=== PATIENT | female | born 1940 | race Caucasian/White ===

== ENCOUNTER 2017-08-06 19:30 | Inpatient (IN) | payer MEDICARE, OTHER ==
[2017-08-06] VITALS: BP 131/65; RESP 18
[~2017-08-06] VITALS: Ht 162.6 cm; Wt 76.2 kg
[~2017-08-06 19:30] MED LIST: CHOL100062 PO; FLUO20CA22 PO; FOLI-49 PO; HYDR-3672 PO; INSU100C5 SQ; LATA2.5D9 OP; LISI40TA9 PO; METF500T3 PO; METO-319 PO; PRAV40TA76 PO; SITA100T8 PO; SOLI5TAB5 PO
[2017-08-06] MEDS ORDERED: NITROGLYCERIN 2% 1 GM OINT PKT TD STA (19:35)
[2017-08-06] MEDS ORDERED: ONDANSETRON 4 MG INJ IV STA (19:35)
[2017-08-06 19:47] LABS: BASOPHILS % 0.3 % (0.0-2.0); EOSINOPHILS # 0.1 10^3/ul (0.0-0.5); EOSINOPHILS % 1.1 % (0.0-7.0); HEMATOCRIT 26.8 % (37.0-47.0); LYMPHOCYTES # 1.4 10^3/ul (0.8-2.9); LYMPHOCYTES % 11.6 % (15.0-51.0); MEAN CORPUSCULAR HEMOGLOBIN 29.9 pg (29.0-33.0); MEAN CORPUSCULAR HGB CONC 33.6 g/dl (32.0-37.0); MEAN PLATELET VOLUME 9.8 fl (7.4-10.4); MONOCYTE # 1.1 10^3/ul (0.3-0.9); MONOCYTES % 8.9 % (0.0-11.0); NEUTROPHIL # 9.6 10^3/ul (1.6-7.5); NEUTROPHILS % 77.7 % (39.0-77.0); PLATELET COUNT 317 10^3/UL (140-415); RED BLOOD COUNT 3.01 10^6/ul (4.20-5.40); RED CELL DISTRIBUTION WIDTH 14.6 % (11.5-14.5); WHITE BLOOD COUNT 12.4 10^3/ul (4.8-10.8)
[2017-08-06] MEDS ORDERED: NITROGLYCERIN (SL) 0.4 MG TAB SL PRN ×2 (20:00→22:00)
[2017-08-06 20:04] LABS: ANION GAP 15 (8-16); BLOOD UREA NITROGEN 31 mg/dl (7-20); CALCIUM 8.8 mg/dl (8.4-10.2); CARBON DIOXIDE 21 mmol/L (21-31); CHLORIDE 97 mmol/L (97-110); CREATININE 1.68 mg/dl (0.44-1.00); GLUCOSE 360 mg/dl (70-220); POTASSIUM 4.9 mmol/L (3.5-5.1); SODIUM 128 mmol/L (135-144)
[2017-08-06 20:17] LABS: TROPONIN-I < 0.012 ng/ml (0.00-0.12)
[2017-08-06] MEDS ORDERED: ACETAMINOPHEN 325 MG TAB PO PRN (21:00)
[2017-08-06] MEDS ORDERED: ONDANSETRON 4 MG INJ IV PRN (21:00)
--- NOTE | 2017-08-06 21:44 | ERA ---
ER Documentation Chief Complaint Date/Time DATE: 08/06/17 TIME: 21:41 Chief Complaint BIBA RA39,CP radiating to L arm,rec'd aspirin & nitro HPI Patient is a 76-year-old female with hypertension and diabetes who presents with chest pain. The patient has chest pain for the past 2 days. The chest pain radiates down her left arm. She denies shortness of breath. She was given aspirin nitroglycerin by paramedics. She says that her pain improved from a 9 to a 7. She had radiation into the neck. The symptoms come and go and lasts minutes at a time. Her primary doctor is Dr. Miranda. ROS All systems reviewed and are negative except as per history of present illness. Medications Home Meds Reported Medications Cholecalciferol* (Vitamin D3*) 1,000 Unit Tablet, 1000 UNIT PO DAILY, TAB 01/09/15 Hydralazine Hcl* (Hydralazine Hcl*) 50 Mg Tablet, 50 MG PO BID, TAB 01/09/15 Metoprolol Succinate* (Toprol XL*) 50 Mg Tab.er.24h, 50 MG PO BID, TAB 01/09/15 Metformin Hcl* (Metformin Hcl* ER) 500 Mg Tab.sr.24h, 500 MG PO BID, TAB 01/09/15 Insulin Glargine,Hum.rec.anlog (Lantus) 100 U/Ml Cartridge, 28 SQ DAILY 09/06/13 Latanoprost (Xalatan) 2.5 Ml Drops, 1 DRP OP HS 08/27/13 Solifenacin* (Vesicare*) 5 Mg Tablet, 5 MG PO DAILY 08/27/13 Pravastatin Sodium* (Pravastatin Sodium*) 40 Mg Tablet, 40 MG PO HS 08/27/13 Fluoxetine Hcl* (Fluoxetine Hcl*) 20 Mg Capsule, 20 MG PO BID, 0 Refills 01/29/11 Lisinopril* (Lisinopril*) 40 Mg Tablet, 40 MG PO BID 01/29/11 Folic Acid* (Folic Acid*) 1 Mg Tablet, 1 MG PO DAILY, 0 Refills 01/29/11 Sitagliptin* (Januvia*) 100 Mg Tablet, 100 MG PO DAILY, 0 Refills 01/29/11 Allergies Allergies: Coded Allergies: Penicillins (Verified Allergy, Mild, RASH,TONGUE SWOLLEN, 09/05/13) morphine (Verified Allergy, Mild, HALUCINATION, 09/05/13) PMhx/Soc History of Surgery: Yes (bilateral knee replacements, spine fusion) Anesthesia Reaction: No Hx Neurological Disorder: No Hx Respiratory Disorders: No Hx Cardiac Disorders: Yes (HTN) Hx Psychiatric Problems: Yes (DEPRESSION) Hx Miscellaneous Medical Probl: No Hx Alcohol Use: No Hx Substance Use: No Hx Tobacco Use: No FmHx Family History: coronary disease Physical Exam Vitals Vital Signs Date Time Temp Pulse Resp B/P Pulse Ox O2 Delivery O2 Flow Rate FiO2 08/06/17 20:22 99.1 78 17 107/95 98 Room Air 08/06/17 19:33 100.4 82 18 134/60 96 Physical Exam Const: No acute distress Head: Atraumatic Eyes: Normal Conjunctiva ENT: Normal External Ears, Nose and Mouth. Neck: Full range of motion..~ No meningismus. Resp: Clear to auscultation bilaterally Cardio: Regular rate and rhythm, no murmurs Abd: Soft, non tender, non distended. Normal bowel sounds Skin: No petechiae or rashes Back: No midline or flank tenderness Ext: No cyanosis, or edema Neur: Awake and alert Psych: Normal Mood and Affect Result Diagram: 08/06/17194008/06/171940 Results 24 hrs Laboratory Tests Test 08/06/17 19:41 White Blood Count 12.410^3/ul Red Blood Count 3.0110^6/ul Hemoglobin 9.0g/dl Hematocrit 26.8% Mean Corpuscular Volume 89.0fl Mean Corpuscular Hemoglobin 29.9pg Mean Corpuscular Hemoglobin Concent 33.6g/dl Red Cell Distribution Width 14.6% Platelet Count 18230^3/UL Mean Platelet Volume 9.8fl Neutrophils % 77.7% Lymphocytes % 11.6% Monocytes % 8.9% Eosinophils % 1.1% Basophils % 0.3% Nucleated Red Blood Cells % 0.0/100WBC Neutrophils # 9.610^3/ul Lymphocytes # 1.410^3/ul Monocytes # 1.110^3/ul Eosinophils # 0.110^3/ul Basophils # 0.010^3/ul Nucleated Red Blood Cells # 0.010^3/ul Sodium Level 128mmol/L Potassium Level 4.9mmol/L Chloride Level 97mmol/L Carbon Dioxide Level 21mmol/L Anion Gap 15 Blood Urea Nitrogen 31mg/dl Creatinine 1.68mg/dl Glucose Level 360mg/dl Calcium Level 8.8mg/dl Troponin I < 0.012ng/ml Current Medications Medications (Trade) Dose Ordered Sig/Kiera Route PRN Reason Start Time Stop Time Status Last Admin Dose Admin Nitroglycerin (Nitroglycerin 2% Oint) 1 inch ONCE STAT TD 08/06/17 19:35 08/06/17 19:36 DC 08/06/17 20:02 Nitroglycerin (Nitroglycerin (Sl Tab) 0.4 Mg) 1 tab Q5M UP TO 3 DOSES PRN SL CHEST PAIN 08/06/17 20:00 Ondansetron HCl (Zofran Inj) 4 mg ONCE STAT IV 08/06/17 19:35 08/06/17 19:36 DC 08/06/17 20:03 Ondansetron HCl (Zofran Inj) 4 mg ER BRIDGE PRN IV NAUSEA AND/OR VOMITING 08/06/17 21:00 08/07/17 20:59 Acetaminophen (Tylenol Tab) 650 mg ER BRIDGE PRN PO MILD PAIN/FEVER 08/06/17 21:00 08/07/17 20:59 Procedures/MDM EKG read by me: Rate/Rhythm: Regular rate and rhythm at a normal rate Intervals: Normal Impression: No evidence of ischemia or arrhythmia Chest X-ray 1V Interpreted by me: Soft Tissue: No acute abnormalities Bones: No acute abnormalities Mediastinum/Cardiac Silhouette/Lungs: No acute abnormalities Patient is a 76-year-old female with cardiac risk factors who presents with chest pain. I was concerned for possible acute coronary syndrome. At this point I see no signs of pneumonia, pneumothorax, pulmonary embolism, or aortic dissection. The patient was given aspirin nitroglycerin and I spoke with Dr. Miranda for admission to a telemetry bed. I believe a telemetry observation admission is appropriate at this time. The patient initially had a temperature of 100.4 but without treatment this temperature on repeat check was 99 and I doubt true infection at this time. However I did send a urinalysis and urine culture as there was a history from the family of previous urine infection. At this point I doubt sepsis or serious bacterial infection. The patient has anemia but does not require transfusion at this time. The patient has hyperglycemia but no signs of diabetic ketoacidosis. The patient has seen Dr. Galarza in the past and I called Dr. Galarza in consultation and I am awaiting a callback at this time. Departure Diagnosis: Primary Impression: Chest pain Qualified Code: R07.9 - Chest pain, unspecified type Additional Impressions: Anemia Qualified Code: D64.9 - Anemia, unspecified type Hyperglycemia CK LEAL MD Aug 06, 2017 21:44
--- NOTE | 2017-08-06 21:45 | RADRPT ---
PROCEDURE: XR Chest. CLINICAL INDICATION: Chest pain TECHNIQUE: Single portable view of the chest was obtained COMPARISON: October 14, 2014 FINDINGS: The trachea is midline. The cardiac silhouette is enlarged and pulmonary vascularity are within norm al limits. The lungs are clear. The costophrenic angles are sharp. IMPRESSION: 1. Cardiomegaly. No evidence of acute cardiopulmonary disease. RPTAT: AAPP Physician Steve Date Time Electronically viewed and signed by Mark Noriega Physician on 08/06/2017 21:45 JL/
[2017-08-06 21:47] VITALS: TEMP 98.8
[2017-08-06 21:59] VITALS: PULSE 75
[2017-08-06] MEDS ORDERED: LORAZEPAM 0.5 MG TAB PO PRN (22:00)
[2017-08-06] MEDS ORDERED: DOCUSATE SODIUM 100 MG CAP PO PRN (22:00)
[2017-08-06] MEDS ORDERED: NACL 0.9% 3 ML SYG IV SCH (22:00)
[2017-08-06] MEDS ORDERED: HYDROCODONE/APAP (5/325) TAB PO PRN (22:00)
[2017-08-06] MEDS ORDERED: GLUCOSE GEL 15 GRAM TUBE BUCCAL PRN (22:30)
[2017-08-06] MEDS ORDERED: DEXTROSE 50% 50 ML SYRINGE IV PRN ×2 (22:30)
[2017-08-06] MEDS ORDERED: GLUCAGON 1 MG INJ IM PRN (22:30)
[2017-08-06] MEDS ORDERED: GLUCOSE GEL 15 GRAM TUBE PO PRN ×2 (22:30)
[2017-08-06] MEDS ORDERED: LACTATED RINGER'S 1,000 ML IV ONE (23:00)
[2017-08-06] MEDS: HEPARIN 5,000 UNIT/0.5 ML VIAL SC SCH (23:14)
[2017-08-06 23:36] LABS: CK-MB 0.26 ng/ml (0.0-2.4); TROPONIN-I 0.014 ng/ml (0.00-0.12)
[2017-08-06] MEDS: CALCIUM CARBONATE 500 MG CHEW TAB PO SCH (23:47)
[2017-08-06 23:51] VITALS: Ht 162.6 cm; Wt 76.2 kg
[2017-08-07] VITALS (10 sets, daily range): BP systolic 118–146; BP diastolic 56–67; PULSE 69–87; RESP 15–18
[2017-08-07] MEDS ORDERED: SOLI5TAB5 PO (01:48)
[2017-08-07] MEDS: ACCU-CHEK XX SCH (02:45)
[2017-08-07] MEDS ORDERED: INSULIN GLARGINE [LANtus] 3 ML PEN SC SCH (08:00)
[2017-08-07] MEDS ORDERED: metFORMIN (XR) 500 MG TAB PO SCH (08:00)
[2017-08-07] MEDS: INSULIN ASPART [NOVOLOG] 3 ML PEN SC SCH ×6 (08:54→21:00)
[2017-08-07] MEDS: FLUOXETINE 20 MG CAP PO SCH ×2 (08:57→21:13)
[2017-08-07] MEDS: CHOLECALCIFEROL 1,000 UNIT TAB PO SCH (08:57)
[2017-08-07] MEDS: LISINOPRIL 20 MG TAB PO SCH ×2 (08:57→21:13)
[2017-08-07] MEDS: SOLIFENACIN 5 MG TAB PO SCH (08:57)
[2017-08-07] MEDS: FAMOTIDINE 20 MG TAB PO SCH (08:58)
[2017-08-07] MEDS: LINAGLIPTIN 5 MG TABLET PO SCH (08:58)
[2017-08-07] MEDS: FOLIC ACID 1 MG TAB PO SCH (08:58)
[2017-08-07] MEDS: METOPROLOL (XL) 50 MG TAB PO SCH ×2 (08:58→21:13)
[2017-08-07] MEDS: CALCIUM CARBONATE 500 MG CHEW TAB PO SCH ×4 (08:58→21:13)
[2017-08-07] MEDS: HEPARIN 5,000 UNIT/0.5 ML VIAL SC SCH ×2 (08:59→21:16)
[2017-08-07 09:22] LABS: BASOPHILS % 0.4 % (0.0-2.0); EOSINOPHILS # 0.1 10^3/ul (0.0-0.5); EOSINOPHILS % 1.5 % (0.0-7.0); HEMATOCRIT 25.4 % (37.0-47.0); HEMOGLOBIN 8.1 g/dl (12.0-16.0); LYMPHOCYTES # 1.6 10^3/ul (0.8-2.9); LYMPHOCYTES % 21.7 % (15.0-51.0); MEAN CORPUSCULAR HEMOGLOBIN 28.4 pg (29.0-33.0); MEAN CORPUSCULAR HGB CONC 31.9 g/dl (32.0-37.0); MEAN CORPUSCULAR VOLUME 89.1 fl (82.0-101.0); MEAN PLATELET VOLUME 10.1 fl (7.4-10.4); MONOCYTE # 0.4 10^3/ul (0.3-0.9); MONOCYTES % 4.9 % (0.0-11.0); NEUTROPHIL # 5.4 10^3/ul (1.6-7.5); NEUTROPHILS % 71.1 % (39.0-77.0); PLATELET COUNT 290 10^3/UL (140-415); RED BLOOD COUNT 2.85 10^6/ul (4.20-5.40); RED CELL DISTRIBUTION WIDTH 14.5 % (11.5-14.5); WHITE BLOOD COUNT 7.6 10^3/ul (4.8-10.8)
[2017-08-07 09:46] LABS: IRON 15 ug/dl (35-150)
[2017-08-07 09:48] LABS: CREATINE KINASE 29 IU/L (23-200)
[2017-08-07 09:54] LABS: ALBUMIN 3.1 g/dl (3.3-4.9); ALBUMIN/GLOBULIN RATIO 0.93; BILIRUBIN,INDIRECT 0.3 mg/dl (0-1.1); BILIRUBIN,TOTAL 0.3 mg/dl (0.2-1.3); CALCIUM 8.5 mg/dl (8.4-10.2); CREATININE 1.51 mg/dl (0.44-1.00); POTASSIUM 4.4 mmol/L (3.5-5.1); TOTAL PROTEIN 6.4 g/dl (6.1-8.1)
[2017-08-07 09:57] LABS: TOTAL IRON BINDING CAPACITY 271 ug/dl (241-421)
[2017-08-07 10:00] LABS: CK-MB 0.24 ng/ml (0.0-2.4)
[2017-08-07 10:01] LABS: TROPONIN-I < 0.012 ng/ml (0.00-0.12)
[2017-08-07 10:28] LABS: FERRITIN 61.4 ng/ml (11.1-264.0)
[2017-08-07] MEDS ORDERED: VANCOMYCIN IV PER PHARMACY XX SCH (10:30)
[2017-08-07] MEDS: HYDROCODONE/APAP (5/325) TAB PO PRN ×2 (10:32→16:57)
[2017-08-07] MEDS ORDERED: VANCOMYCIN 1.5 GM in SOD CHLORIDE 0.9% 250 ML IVPB ONE (12:00)
[2017-08-07] MEDS: SOD FERRIC GLUC COMPLX 125 MG in SOD CHLORIDE 0.9% 100 ML IVPB SCH (12:27)
[2017-08-07] MEDS: NEOMYC/POLYMYX/HC 10 ML OTIC SUSP BOTH EARS SCH ×3 (12:27→21:12)
--- NOTE | 2017-08-07 14:00 | CONS ---
DATE OF ADMISSION: 08/06/2017 DATE OF CONSULTATION: 08/07/2017 TYPE OF CONSULTATION: Cardiology. REFERRING PHYSICIAN: Dr. Miranda REASON FOR CONSULTATION: Chest pain. CHIEF COMPLAINT: Chest pain. HISTORY OF PRESENT ILLNESS: Thank you for this referral. History obtained from the patient, isela rojas with her , review of the chart. This is a pleasant 76-year-old female with history of d iabetes, hypertension who came to emergency room with above complaint. Patient does complain of epi gastric and substernal chest pain. Could not describe the pain well. It lasted for hours. She cou ld not explain exacerbating factor to it. The patient's pain has resolved now. She has had negativ e cardiac enzymes. PAST MEDICAL HISTORY: History of diabetes, history of hypertension, history of dyslipidemia, histor y of anemia, history of , asthma, gastroesophageal reflux disease, history of vitamin D and vit velasquez B deficiency. Review of the old chart. History of osteoarthritis status post lumbar laminecto my, knee arthroplasty, right breast biopsy which was benign, left total knee replacement, status pos t muscle biopsy. MEDICATIONS: As per medication reconciliation, personally reviewed. ALLERGIES: MORPHINE AND PENICILLIN. SOCIAL HISTORY: Does not smoke or drink. FAMILY HISTORY: No reported early coronary artery disease. REVIEW OF SYSTEMS: Denies all other except for mentioned. Positive also back pain and leg pain. PHYSICAL EXAMINATION: VITAL SIGNS: Temperature 98, heart rate of 83, blood pressure 125/59, respiration rate of 18, satur ating 93%. HEENT: Normocephalic, atraumatic. No acute distress. Pupils are equal. NECK: Supple, with no JVD, no stridor. CARDIOVASCULAR: Regular rate and rhythm. Grade 1 systolic murmur. PULMONARY: With no wheezes or rhonchi. GASTROINTESTINAL: Soft, nontender. No rebound, no guarding. EXTREMITIES: No significant lower extremity edema. NEUROLOGIC: Awake and alert. PSYCHIATRIC: Calm, pleasant. LABORATORY: WBC of 7.6, hemoglobin 8.1, platelets 290. Sodium 132, potassium 4.4, BUN of 24, creat inine 1.55, glucose of 259. MCV is 89. EKG shows normal sinus rhythm with incomplete right bundle on my personal review. Troponins have been negative x3. Iron studies showed iron is only 15, creat inine is 1.51, glucose 252. ASSESSMENT AND PLAN: 1. Chest pain, rule out acute coronary syndrome. 2. Severe anemia. 3. Iron deficiency. 4. Diabetes. 5. Hypertension. 6. History of dyslipidemia, history of osteoarthritis and multiple back surgeries. RECOMMENDATIONS: Cardiac enzymes have been negative so far and myocardial infarction was ruled out. Patient currently chest pain-free. Blood pressure control will be continued with the current josias men. Diabetes management as per Dr. Miranda and/or associate. Echo has been ordered, is still pendin g. We will order a Lexiscan stress test to be supervised by Dr. Galarza tomorrow. Dr. Galarza will f ollow from a cardiac standpoint tomorrow. Thank you for this referral. Dictated By: TRISH GARCIA/PRECIOUS Conf#: [id number] DID#: [id number]
[2017-08-07 14:48] LABS: ADD UMIC YES; UR ASCORBIC ACID NEGATIVE (NEGATIVE); UR BILIRUBIN (Dip) NEGATIVE (NEGATIVE); UR BLOOD (Dip) NEGATIVE (NEGATIVE); UR CLARITY CLEAR (CLEAR); UR COLOR YELLOW (YELLOW); UR GLUCOSE (Dip) 1+ mg/dL (NEGATIVE); UR KETONES (Dip) NEGATIVE (NEGATIVE); UR LEUKOCYTE ESTERASE (Dip) TRACE Leu/ul (NEGATIVE); UR NITRITE (Dip) NEGATIVE (NEGATIVE); UR RBC 0 /HPF (0-5); UR SPECIFIC GRAVITY (Dip) 1.013 (1.003-1.030); UR SQUAMOUS EPITHELIAL CELL FEW /HPF (FEW); UR TOTAL PROTEIN (Dip) 1+ mg/dl (NEGATIVE); UR UROBILINOGEN (Dip) NEGATIVE (NEGATIVE)
[2017-08-07] MEDS ORDERED: LACTATED RINGER'S 500 ML IV ONE (16:00)
--- NOTE | 2017-08-07 16:18 | HP ---
Date/Time of Note Date/Time of Note DATE: 08/07/17 TIME: 15:54 Assessment/Plan VTE Prophylaxis VTE Prophylaxis Intervention: heparin Lines/Catheters IV [facility] Urinary Cath still in place: No Assessment/Plan Problems: (1) Diabetes mellitus type 2 in nonobese Status: Chronic Comment: Her control has been variable. Please note there been some issues of cooperation and compliance although generally this very pleasant woman does her best. I will adjust her regimen to try and get her under adequate control here in the hospital. Please note with the question being raised about the fevers and the possibility of recurrent spinal infection (2) Hyperlipidemia Status: Chronic Comment: Noted. Statin therapy. Qualifiers: Hyperlipidemia type: pure hypercholesterolemia Qualified Code: E78.00 - Pure hypercholesterolemia (3) Dermatomyositis Status: Chronic Comment: Noted. Previously under the care of rheumatology Dr. Dillan Heart (4) Sciatica Status: Chronic Comment: He has been through a number of protocols for evaluation of this including neurology neurosurgery second opinions etc. This continues to be a very vexing problem. She is actively a patient of the orthopedist Dr. Gayle Qualifiers: Laterality: right Qualified Code: M54.31 - Sciatica of right side (5) Lumbar disc disease Status: Chronic Comment: As above continues to be a source of problem. We will try and get some imaging in process. (6) History of lumbar laminectomy Status: Chronic Comment: Noted. Hopefully there is not a complication (7) Chest pain Status: Acute Comment: She has been seen in cardiology consultation. She does have cardiac risk factors my index of suspicion and fear r is low. Qualifiers: Chest pain type: unspecified Qualified Code: R07.9 - Chest pain, unspecified type (8) Hyperglycemia Status: Acute Comment: As above continue to adjust medication regimen (9) Anemia Status: Acute Comment: Checking iron studies and will replete as indicated. Qualifiers: Anemia type: unspecified type Qualified Code: D64.9 - Anemia, unspecified type HPI/ROS Admit Date/Time Admit Date/Time Aug 06, 2017 at 20:43 Hx of Present Illness 76-year-old [place] woman with a chief complaint of some failure to thrive. She has had a somewhat complicated medical history over the last 3 years which had correlated her around issues. She had a semi-urgent lumbar laminectomy with apparent infection as a complication performed by Dr. Martin at [facility] in 2014. Postoperatively she has had significant issues of ambulation walking is been seen by her colleague Dr. Zenon Gayle, and ultimately by neurology Dr. Rigoberto Barragan. Over the last few days she had not been feeling well and described a sensation of cough some shortness of breath and chest pressure. Please note that she is somewhat vague about this history. Also complains about fever and polyuria and a concern that the infection her back has recurred.. ROS Constitutional: chills, febrile Eyes: no complaints ENT: no complaints Respiratory: shortness of breath Cardiovascular: chest pain Gastrointestinal: no complaints Genitourinary: other (Frequency) Musculoskeletal: back pain Skin: no complaints Neurologic: no complaints Psychological: anxiety, depression PMH/Family/Social Past Medical History Medical History: diabetes (type 2), GERD, high cholesterol, hypertension, renal disease (ckd 2), other (migraine; b12 deficit; vitamin D deficit; Asthma- persistent mild; Dermatomyositis; anxiety with dysthymia; osteoarthritis; overactive bladder; lumbar vertebral osteomyelitis 2014; sciatica) Past Surgical History Past Surgical Hx: other (lumbar laminectomy-2006; left hip arthroplasty; muscle biopsy; CE & IOL-OU; left knee arthroscopy; breast cyst times ; status post lumbar spine surgery for osteomyelitis and screw replacement 02-08-[address] Martin; right knee arthroplasty 2014) Family History Significant Family History: heart disease, diabetes, hypertension Social History Born in [place] and raised; in the 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 Alcohol Use: none Smoking Status: Never smoker Drug Use: none Exam/Review of Systems Vital Signs Vitals Vital Signs Date Time Temp Pulse Resp B/P Pulse Ox O2 Delivery O2 Flow Rate FiO2 08/07/17 15:43 98.0 79 18 139/64 93 08/06/17 21:47 Room Air Intake and Output 08/06/17 08/06/17 08/07/17 15:00 23:00 07:00 Intake Total 1340 ml Balance 1340 ml Exam Constitutional: alert, oriented Head: atraumatic, normocephalic Eyes: EOMI, PERRL, nl conjunctiva, nl lids, nl sclera ENMT: mucosa pink and moist, nl external ears & nose, nl lips & teeth, nl nasal mucosa & septum, tympanic membranes (Normal) Neck: non-tender, supple Respiratory: clear to auscultation, normal air movement Cardiovascular: nl pulses, regular rate and rhythm Gastrointestinal: nl liver, spleen, non-tender, soft Extremities: normal pulses Neurological: ENGINEERING DOCUMENTATION SPECIALIST II-XII intact, nl speech Skin: nl turgor, rash or lesions Labs Result Diagram: 08/07/1781108/07/17811 Medications Medications Current Medications Lorazepam (Ativan) 0.5 mg Q8H PRN PO ANXIETY; Start 08/06/17 at 22:00 Acetaminophen/ Hydrocodone Bitart ([place] (5/325)) 1 tab Q6H PRN PO PAIN LEVEL 4 -6 Last administered on 08/07/17 10:32; Admin Dose 1 TAB; Start 08/06/17 at 22: 00 Acetaminophen/ Hydrocodone Bitart ([place] (5/325)) 2 tab Q6H PRN PO PAIN LEVEL 7 -10; Start 08/06/17 at 22:00 Docusate Sodium (Colace) 100 mg Q12H PRN PO CONSTIPATION; Start 08/06/17 at 22: 00 Famotidine (Pepcid) 20 mg DAILY PO Last administered on 08/07/17 08:58; Admin Dose 20 MG; Start 08/07/17 at 09:00 Heparin Sodium (Porcine) (Heparin (5000 Units/0.5 ml)) 5,000 unit Q12 SC Last administered on 08/07/17 08:59; Admin Dose 5,000 UNIT; Start 08/06/17 at 22:00 Calcium Carbonate (Tums) 500 mg QID PO Last administered on 08/07/17 12:27; Admin Dose 500 MG; Start 08/06/17 at 22:00 Aspirin (Aspirin) 81 mg DAILY PO ; Start 08/08/17 at 09:00 Nitroglycerin (Nitroglycerin (Sl Tab) 0.4 Mg) 1 tab Q5M PRN SL CHEST PAIN; Start 08/06/17 at 22:00 Cholecalciferol (Vitamin D) 1,000 unit DAILY PO Last administered on 08/07/17 08:57; Admin Dose 1,000 UNIT; Start 08/07/17 at 09:00 Fluoxetine HCl (Prozac) 20 mg BID PO Last administered on 08/07/17 08:57; Admin Dose 20 MG; Start 08/07/17 at 09:00 Folic Acid (Folic Acid) 1 mg DAILY PO Last administered on 08/07/17 08:58; Admin Dose 1 MG; Start 08/07/17 at 09:00 Hydralazine HCl (Apresoline) 50 mg BID PO Last administered on 08/07/17 08:57 ; Admin Dose 50 MG; Start 08/07/17 at 09:00 Latanoprost (Xalatan) 1 drop HS BOTH EYES ; Start 08/07/17 at 21:00 Lisinopril (Zestril) 40 mg BID PO Last administered on 08/07/17 08:57; Admin Dose 40 MG; Start 08/07/17 at 09:00 Metformin HCl (Glucophage Xr) 500 mg BID PO ; Start 08/07/17 at 09:00; Status UNV Metoprolol Succinate (Toprol Xl) 50 mg BID PO Last administered on 08/07/17 08 :58; Admin Dose 50 MG; Start 08/07/17 at 09:00 Solifenacin (Vesicare) 5 mg DAILY PO Last administered on 08/07/17 08:57; Admin Dose 5 MG; Start 08/07/17 at 09:00 Atorvastatin Calcium (Lipitor) 40 mg QHS PO ; Start 08/07/17 at 21:00 Linagliptin (Tradjenta) 5 mg DAILY PO Last administered on 08/07/17 08:58; Admin Dose 5 MG; Start 08/07/17 at 09:00 Diagnostic Test (Pha) (Accu-Chek) 1 ea 02 XX Last administered on 08/07/17 02: 45; Admin Dose 1 EA; Start 08/07/17 at 02:00 Miscellaneous Information 1 ea NOTE XX ; Start 08/06/17 at 22:30 Glucose (Glutose) 15 gm Q15M PRN PO DECREASED GLUCOSE; Start 08/06/17 at 22:30 Glucose (Glutose) 22.5 gm Q15M PRN PO DECREASED GLUCOSE; Start 08/06/17 at 22: 30 Dextrose (D50w Syringe) 25 ml Q15M PRN IV DECREASED GLUCOSE; Start 08/06/17 at 22:30 Dextrose (D50w Syringe) 50 ml Q15M PRN IV DECREASED GLUCOSE; Start 08/06/17 at 22:30 Glucagon (Glucagen) 1 mg Q15M PRN IM DECREASED GLUCOSE; Start 08/06/17 at 22:30 Glucose (Glutose) 15 gm Q15M PRN BUCCAL DECREASED GLUCOSE; Start 08/06/17 at 22 :30 Influenza Virus Vaccine 0.5 ml 0.5 ml ONCE ONCE IM* ; Start 08/08/17 at 09:00; Stop 08/08/17 at 09:01 Ferric Sodium Gluconate Complex/ Sodium Chloride (Ferrlecit/NS) 110 ml @ 100 mls/hr Q24H IVPB Last administered on 08/07/17 12:27; Admin Dose 100 MLS/HR; Start 08/07/17 at 12:00; Stop 08/09/17 at 13:05 Insulin Glargine (Lantus) 32 unit DAILY@08 SC ; Start 08/08/17 at 08:00 Neomycin/ Polymyxin/ Hydrocortisone 4 drop 4 drop QID BOTH EARS Last administered on 08/07/17 12:27; Admin Dose 4 DROP; Start 08/07/17 at 13:00; Stop 08/12/17 at 12:59 Vancomycin HCl/ Sodium Chloride (Vancocin/NS) 150 ml @ 100 mls/hr Q24H IVPB ; Start 08/08/17 at 18:00 EUGENE MUJICA MD Aug 07, 2017 16:05
[2017-08-07 16:32] LABS: CREATINE KINASE 28 IU/L (23-200)
[2017-08-07 16:47] LABS: CK-MB < 0.22 ng/ml (0.0-2.4); TROPONIN-I < 0.012 ng/ml (0.00-0.12)
--- NOTE | 2017-08-07 17:37 | RADRPT ---
Echocardiogram Report Patient Name: CHAIM PERALES Gender: Female Date: 1940 Study Date: 07-Aug-2017 Broadcast Transmitter Operator: Isidro [facility] Location: 555[address]A Ref. Physician: TRISH VILLAREAL Quality: Adequate Procedures: Transthoracic echocardiogram with complete 2D, M-Mode, and doppler examination. Indications: Chest Pain. 2D/M Mode Doppler Measurement Value Normal Ranges Measurement Value Normal Ranges LVIDd 2D 4.8 3.5 - 5.6 cm AV Peak Hoang 1.8 m/sec LVIDs 2D 3.1 2.1 - 4.1 cm AV Peak PG 13.0 mmHg FS 2D 35.2 % LVOT Peak Hoang 1.4 m/sec LVPWd 2D 1.1 0.6 - 1.1 cm LVOT Peak PG 8.0 mmHg IVSd 2D 1.1 0.6 - 1.1 cm MV E Peak Hoang 1.6 m/sec IVS/LVPW 2D 1.0 MV A Peak Hoang 1.3 m/sec AoR Diam 2D 2.6 2.0 - 3.7 cm MV E/A 1.3 LA/Ao 2D 1 0 - 1 MV Decel Time 176 msec EDV 2D 107.0 cm3 MV E/A 1.3 ESV 2D 29.2 cm3 TR Peak Hoang 3.2 m/sec LA Dimen 2D 3.6 2.3 - 4.0 cm TR Peak PG 41.0 mmHg RVSP 51.0 mmHg Findings Left Ventricle: Normal left ventricular systolic function. Normal left ventricular cavity size. Left ventricular wall thickness upper limits of normal. Ejection fraction is visually estimated at 65 %. Abnormal Diastolic Function. Right Ventricle: Normal right ventricular size. Normal right ventricular systolic function. Left Atrium: The left atrium is normal in size. Right Atrium: The right atrium is normal in size. Mitral Valve: Mild mitral leaflet calcification. Mild mitral annular calcification. Trace mitral regurgitation. Aortic Valve: Normal appearance of the aortic valve. No significant aortic stenosis or insufficiency. Tricuspid Valve: Normal appearance of the tricuspid valve. Estimated peak PA systolic pressure 51 mmHg. There is mild tricuspid regurgitation. Pulmonic Valve: Pulmonic valve not well visualized. There is trace pulmonic regurgitation. Pericardium: Normal pericardium with no significant pericardial effusion. Aorta: Normal aortic root. IVC: Normal size and normal respiratory collapse consistent with normal right atrial pressure. Conclusions 1.Normal left ventricular systolic function. Normal left ventricular cavity size. Left ventricular wall thickness upper limits of normal. Ejection fraction is visually estimated at 65 %. Abnormal Diastolic Function. 2.The left atrium is normal in size. 3.Mild mitral leaflet calcification. Mild mitral annular calcification. Trace mitral regurgitation. 4.Normal appearance of the aortic valve. No significant aortic stenosis or insufficiency. 5.Normal appearance of the tricuspid valve. Estimated peak PA systolic pressure 51 mmHg. There is mild tricuspid regurgitation. Electronically Signed By: Trish Villareal 07-Aug-2017 17:36:20 -0700 Patient Name: CHAIM PERALES Study Date: 07-Aug-2017 [id number]
--- NOTE | 2017-08-07 19:49 | RADRPT ---
PROCEDURE: XR Lumbar Spine. CLINICAL INDICATION: Fever, prior surgery TECHNIQUE: Three views of the lumbar spine are available for review COMPARISON: 01/09/2015, CT dated 10/01/2015 FINDINGS: No acute fracture or dislocation is seen. The alignment is normal. The normal lumbar lordosis is preserved. No radiopaque foreign body is identified. The vertebral body heights are maintained. The intervertebral disk spaces are moderately to severely narrowed at all levels. Vacuum disc phenom enon is noted L1/L2. Prosthetic disc devices are noted at L2/L3, 04/05 and L5/S1.. The posterior elements there surgically resected L4 and L5 suggesting laminectomy.. On the frontal view, there is normal alignment. Posterior fusion device transfixing L2-L4 demonstrates stable alignment without evidence of hardware failure or other complication. IMPRESSION: 1. No evidence of fracture, dislocation or bone destruction. 2. Advanced multilevel lumbar degenerative disc disease and enthesopathy. 3. Posterior fusion device transfixing L2-L4, with stable alignment and without evidence of hardwar e failure or other complication. 4. Mild atherosclerotic peripheral vascular disease. RPTAT: QQ .Andrés Hardwick MD, Date Time Electronically viewed and signed by .Andrés Hardwick MD, on 08/07/2017 19:48 .M/
[2017-08-07] MEDS: ATORVASTATIN 40 MG TAB PO SCH (21:13)
[2017-08-07] MEDS: LATANOPROST 0.005% 2.5 ML OPH BOTH EYES SCH (22:33)
[2017-08-08] VITALS (13 sets, daily range): BP systolic 126–167; BP diastolic 57–75; PULSE 63–73; RESP 16–20
[2017-08-08] MEDS: ACCU-CHEK XX SCH (02:00)
[2017-08-08] MEDS: INSULIN ASPART [NOVOLOG] 3 ML PEN SC SCH ×7 (08:00→20:41)
[2017-08-08] MEDS: NEOMYC/POLYMYX/HC 10 ML OTIC SUSP BOTH EARS SCH ×5 (08:22→20:41)
[2017-08-08] MEDS: CHOLECALCIFEROL 1,000 UNIT TAB PO SCH (08:23)
[2017-08-08] MEDS: ASPIRIN 81 MG TAB PO SCH (08:23)
[2017-08-08] MEDS: CALCIUM CARBONATE 500 MG CHEW TAB PO SCH ×4 (08:23→20:41)
[2017-08-08] MEDS: LINAGLIPTIN 5 MG TABLET PO SCH (08:23)
[2017-08-08] MEDS: FAMOTIDINE 20 MG TAB PO SCH (08:23)
[2017-08-08] MEDS: FLUOXETINE 20 MG CAP PO SCH ×2 (08:23→20:40)
[2017-08-08] MEDS: FOLIC ACID 1 MG TAB PO SCH (08:23)
[2017-08-08] MEDS: HYDROCODONE/APAP (5/325) TAB PO PRN ×2 (08:23→16:41)
[2017-08-08] MEDS: HEPARIN 5,000 UNIT/0.5 ML VIAL SC SCH ×2 (08:24→20:44)
[2017-08-08] MEDS: METOPROLOL (XL) 50 MG TAB PO SCH ×2 (08:25→20:40)
[2017-08-08] MEDS: LISINOPRIL 20 MG TAB PO SCH ×2 (08:25→20:41)
[2017-08-08] MEDS: INSULIN GLARGINE [LANtus] 3 ML PEN SC SCH (08:41)
[2017-08-08] MEDS ORDERED: INFLUENZA VIRUS VACCINE 0.5 ML (DISPENSING) IM* ONE (09:00)
[2017-08-08 09:07] LABS: BASOPHILS % 0.1 % (0.0-2.0); EOSINOPHILS # 0.3 10^3/ul (0.0-0.5); EOSINOPHILS % 3.4 % (0.0-7.0); HEMOGLOBIN 8.2 g/dl (12.0-16.0); LYMPHOCYTES # 1.3 10^3/ul (0.8-2.9); LYMPHOCYTES % 15.1 % (15.0-51.0); MEAN CORPUSCULAR HEMOGLOBIN 29.2 pg (29.0-33.0); MEAN CORPUSCULAR HGB CONC 32.8 g/dl (32.0-37.0); MEAN PLATELET VOLUME 9.9 fl (7.4-10.4); MONOCYTE # 0.5 10^3/ul (0.3-0.9); MONOCYTES % 6.3 % (0.0-11.0); NEUTROPHIL # 6.2 10^3/ul (1.6-7.5); NEUTROPHILS % 74.6 % (39.0-77.0); PLATELET COUNT 317 10^3/UL (140-415); RED BLOOD COUNT 2.81 10^6/ul (4.20-5.40); RED CELL DISTRIBUTION WIDTH 14.4 % (11.5-14.5); WHITE BLOOD COUNT 8.3 10^3/ul (4.8-10.8)
[2017-08-08 09:38] LABS: ALBUMIN 3.3 g/dl (3.3-4.9); ALBUMIN/GLOBULIN RATIO 1.03; BILIRUBIN,INDIRECT 0.2 mg/dl (0-1.1); BILIRUBIN,TOTAL 0.2 mg/dl (0.2-1.3); CALCIUM 8.5 mg/dl (8.4-10.2); CREATININE 1.37 mg/dl (0.44-1.00); POTASSIUM 4.4 mmol/L (3.5-5.1); TOTAL PROTEIN 6.5 g/dl (6.1-8.1)
[2017-08-08 09:53] LABS: C-REACTIVE PROTEIN 15.3 mg/dl (0.0-0.9)
[2017-08-08] MEDS: SOLIFENACIN 5 MG TAB PO SCH (11:36)
[2017-08-08] MEDS ORDERED: REGADENOSON 0.4 MG/5 ML SYG ONE (13:03)
--- NOTE | 2017-08-08 15:12 | RADRPT ---
PROCEDURE: Nuclear medicine myocardial stress and rest scan. CLINICAL INDICATION: Chest pain. TECHNIQUE: The patient was stressed with 0.4 mg IV Lexiscan. 9.8 mCi technetium 99m Tetrofosmin ( Myoview) was administered rest. 29.7 mCi technetium 99m Tetrofosmin (Myoview) was administered dur ing stress. Images were obtained and reconstructed in the short axis, horizontal long axis, and janki tical long axis. Gated images were obtained and ejection fraction was calculated. COMPARISON: No prior study is available for comparison. FINDINGS: The stress and rest images demonstrate normal uptake throughout. There is no fixed abnormality or r eversible abnormality. There is no evidence of transient ischemic dilatation. Wall motion is normal. There is normal wall thickening during systole. Ejection fraction at stress is 72%. IMPRESSION: 1. No evidence of stress induced myocardial ischemia. 2. Ejection fraction at stress is 72%. RPTAT: QQ .Virgil Jarrett MD, MD Date Time Electronically viewed and signed by .Virgil Jarrett MD, on 08/08/2017 15:11 .R/
[2017-08-08] MEDS: SOD FERRIC GLUC COMPLX 125 MG in SOD CHLORIDE 0.9% 100 ML IVPB SCH (15:47)
--- NOTE | 2017-08-08 16:00 | TMLRPT ---
DATE: INDICATIONS: Chest pain. FINDINGS: 1. Baseline EKG normal sinus rhythm with right bundle branch block. 2. Normal clinical response. 3. No EKG changes consistent with ischemia. 4. No arrhythmias. 5. Image results are pending. Dictated By: ANDRIA MOULTON MD, MS/PRECIOUS Conf#: [id number] DID#: [id number]
[2017-08-08] MEDS: VANCOMYCIN 1 GM in NS 250 ML IVPB SCH (16:43)
[2017-08-08] MEDS ORDERED: VANCOMYCIN 750 MG in SOD CHLORIDE 0.9% 150 ML IVPB SCH (18:00)
--- NOTE | 2017-08-08 18:31 | PN ---
Date/Time of Note Date/Time of Note DATE: 08/08/17 TIME: 18:28 Assessment/Plan VTE Prophylaxis VTE Prophylaxis Intervention: heparin Lines/Catheters IV Catheter Type (from Nrs): [facility] Urinary Cath still in place: No Assessment/Plan Problems: (1) Anemia Status: Acute Comment: recieving IV iron Qualifiers: Anemia type: unspecified type Qualified Code: D64.9 - Anemia, unspecified type (2) Diabetes mellitus type 2 in nonobese Status: Chronic Comment: stable control (3) Glaucoma (increased eye pressure) Status: Chronic Comment: stable Qualifiers: Glaucoma type: unspecified Laterality: bilateral Qualified Code: H40.9 - Glaucoma of both eyes, unspecified glaucoma type (4) Hyperlipidemia Status: Chronic Comment: continue statin Qualifiers: Hyperlipidemia type: pure hypercholesterolemia Qualified Code: E78.00 - Pure hypercholesterolemia (5) Sciatica Status: Chronic Comment: persists, check mri Qualifiers: Laterality: right Qualified Code: M54.31 - Sciatica of right side (6) Chest pain Status: Acute Comment: ruled out for mi, non cardiac Qualifiers: Chest pain type: unspecified Qualified Code: R07.9 - Chest pain, unspecified type Subjective 24 Hr Interval Summary Free Text/Dictation Patient is without chest pain. Reports that chronic back pain persists unchanged Constitutional: no complaints Cardiovascular: no complaints Gastrointestinal: no complaints Genitourinary: no complaints Exam/Review of Systems Vital Signs Vitals Vital Signs Date Time Temp Pulse Resp B/P Pulse Ox O2 Delivery O2 Flow Rate FiO2 08/08/17 16:01 69 08/08/17 15:59 98.0 20 160/60 95 08/06/17 21:47 Room Air Intake and Output 08/07/17 08/07/17 08/08/17 15:00 23:00 07:00 Intake Total 110 ml 1650 ml 300 ml Balance 110 ml 1650 ml 300 ml Exam Constitutional: alert, oriented Neck: non-tender, supple Respiratory: clear to auscultation, normal air movement Cardiovascular: nl pulses, regular rate and rhythm Results Result Diagram: 08/08/17 0808/08/17820 Results 24 hrs Laboratory Tests Test 08/07/17 21:11 08/08/17 08:21 08/08/17 08:33 08/08/17 12:35 Bedside Glucose 119 150 57 L White Blood Count 8.3 Red Blood Count 2.81 L Hemoglobin 8.2 L Hematocrit 25.0 L Mean Corpuscular Volume 89.0 Mean Corpuscular Hemoglobin 29.2 Mean Corpuscular Hemoglobin Concent 32.8 Red Cell Distribution Width 14.4 Platelet Count 317 Mean Platelet Volume 9.9 Neutrophils % 74.6 Lymphocytes % 15.1 Monocytes % 6.3 Eosinophils % 3.4 Basophils % 0.1 Nucleated Red Blood Cells % 0.0 Neutrophils # 6.2 Lymphocytes # 1.3 Monocytes # 0.5 Eosinophils # 0.3 Basophils # 0.0 Nucleated Red Blood Cells # 0.0 Erythrocyte Sedimentation Rate 105 H Sodium Level 134 L Potassium Level 4.4 Chloride Level 102 Carbon Dioxide Level 25 Anion Gap 11 Blood Urea Nitrogen 17 Creatinine 1.37 H Glucose Level 147 # Calcium Level 8.5 Total Bilirubin 0.2 Direct Bilirubin 0.00 Indirect Bilirubin 0.2 Aspartate Amino Transf (AST/SGOT) 19 Alanine Aminotransferase (ALT/SGPT) 31 Alkaline Phosphatase 105 Troponin I < 0.012 C-Reactive Protein 15.3 H Total Protein 6.5 Albumin 3.3 Globulin 3.20 Albumin/Globulin Ratio 1.03 Test 08/08/17 12:47 08/08/17 13:28 08/08/17 17:33 Bedside Glucose 176 128 132 Medications Medications Current Medications Lorazepam (Ativan) 0.5 mg Q8H PRN PO ANXIETY; Start 08/06/17 at 22:00 Acetaminophen/ Hydrocodone Bitart ([place] (5/325)) 1 tab Q6H PRN PO PAIN LEVEL 4 -6 Last administered on 08/08/17 16:41; Admin Dose 1 TAB; Start 08/06/17 at 22: 00 Acetaminophen/ Hydrocodone Bitart ([place] (5/325)) 2 tab Q6H PRN PO PAIN LEVEL 7 -10; Start 08/06/17 at 22:00 Docusate Sodium (Colace) 100 mg Q12H PRN PO CONSTIPATION; Start 08/06/17 at 22: 00 Famotidine (Pepcid) 20 mg DAILY PO Last administered on 08/08/17 08:23; Admin Dose 20 MG; Start 08/07/17 at 09:00 Heparin Sodium (Porcine) (Heparin (5000 Units/0.5 ml)) 5,000 unit Q12 SC Last administered on 08/08/17 08:24; Admin Dose 5,000 UNIT; Start 08/06/17 at 22:00 Calcium Carbonate (Tums) 500 mg QID PO Last administered on 08/08/17 15:47; Admin Dose 500 MG; Start 08/06/17 at 22:00 Aspirin (Aspirin) 81 mg DAILY PO Last administered on 08/08/17 08:23; Admin Dose 81 MG; Start 08/08/17 at 09:00 Nitroglycerin (Nitroglycerin (Sl Tab) 0.4 Mg) 1 tab Q5M PRN SL CHEST PAIN; Start 08/06/17 at 22:00 Cholecalciferol (Vitamin D) 1,000 unit DAILY PO Last administered on 08/08/17 08:23; Admin Dose 1,000 UNIT; Start 08/07/17 at 09:00 Fluoxetine HCl (Prozac) 20 mg BID PO Last administered on 08/08/17 08:23; Admin Dose 20 MG; Start 08/07/17 at 09:00 Folic Acid (Folic Acid) 1 mg DAILY PO Last administered on 08/08/17 08:23; Admin Dose 1 MG; Start 08/07/17 at 09:00 Hydralazine HCl (Apresoline) 50 mg BID PO Last administered on 08/08/17 08:24 ; Admin Dose 50 MG; Start 08/07/17 at 09:00 Latanoprost (Xalatan) 1 drop HS BOTH EYES Last administered on 08/07/17 22:33 ; Admin Dose 1 DROP; Start 08/07/17 at 21:00 Lisinopril (Zestril) 40 mg BID PO Last administered on 08/08/17 08:25; Admin Dose 40 MG; Start 08/07/17 at 09:00 Metformin HCl (Glucophage Xr) 500 mg BID PO ; Start 08/07/17 at 09:00; Status UNV Metoprolol Succinate (Toprol Xl) 50 mg BID PO Last administered on 08/08/17 08 :25; Admin Dose 50 MG; Start 08/07/17 at 09:00 Solifenacin (Vesicare) 5 mg DAILY PO Last administered on 08/08/17 11:36; Admin Dose 5 MG; Start 08/07/17 at 09:00 Atorvastatin Calcium (Lipitor) 40 mg QHS PO Last administered on 08/07/17 21: 13; Admin Dose 40 MG; Start 08/07/17 at 21:00 Linagliptin (Tradjenta) 5 mg DAILY PO Last administered on 08/08/17 08:23; Admin Dose 5 MG; Start 08/07/17 at 09:00 Diagnostic Test (Pha) (Accu-Chek) 1 ea 02 XX Last administered on 08/07/17 02: 45; Admin Dose 1 EA; Start 08/07/17 at 02:00 Miscellaneous Information 1 ea NOTE XX ; Start 08/06/17 at 22:30 Glucose (Glutose) 15 gm Q15M PRN PO DECREASED GLUCOSE; Start 08/06/17 at 22:30 Glucose (Glutose) 22.5 gm Q15M PRN PO DECREASED GLUCOSE; Start 08/06/17 at 22: 30 Dextrose (D50w Syringe) 25 ml Q15M PRN IV DECREASED GLUCOSE Last administered on 08/08/17 12:42; Admin Dose 25 ML; Start 08/06/17 at 22:30 Dextrose (D50w Syringe) 50 ml Q15M PRN IV DECREASED GLUCOSE; Start 08/06/17 at 22:30 Glucagon (Glucagen) 1 mg Q15M PRN IM DECREASED GLUCOSE; Start 08/06/17 at 22:30 Glucose 15 gm 15 gm Q15M PRN BUCCAL DECREASED GLUCOSE; Start 08/06/17 at 22:30 Ferric Sodium Gluconate Complex/ Sodium Chloride (Ferrlecit/NS) 110 ml @ 100 mls/hr Q24H IVPB Last administered on 08/08/17 15:47; Admin Dose 100 MLS/HR; Start 08/07/17 at 12:00; Stop 08/09/17 at 13:05 Insulin Glargine (Lantus) 32 unit DAILY@08 SC Last administered on 08/08/17 08 :41; Admin Dose 32 UNIT; Start 08/08/17 at 08:00 Neomycin/ Polymyxin/ Hydrocortisone 4 drop 4 drop QID BOTH EARS Last administered on 08/08/17 16:42; Admin Dose 4 DROP; Start 08/07/17 at 13:00; Stop 08/12/17 at 12:59 Vancomycin HCl (Vancocin) 250 ml @ 125 mls/hr Q24H IVPB Last administered on 08/08/17t 16:43; Admin Dose 125 MLS/HR; Start 08/08/17 at 16:00 EUGENE MUJICA MD Aug 08, 2017 18:31
[2017-08-08] MEDS: ATORVASTATIN 40 MG TAB PO SCH (20:40)
[2017-08-08] MEDS: LATANOPROST 0.005% 2.5 ML OPH BOTH EYES SCH (20:41)
--- NOTE | 2017-08-08 22:12 | PN ---
Date/Time of Note Date/Time of Note DATE: 08/08/17 TIME: 22:11 Assessment/Plan VTE Prophylaxis VTE Prophylaxis Intervention: SCD's Lines/Catheters IV Catheter Type (from [facility]): [facility] Urinary Cath still in place: No Assessment/Plan Assessment/Plan 1. Chest pain, rule out acute coronary syndrome. 2. Severe anemia. 3. Iron deficiency. 4. Diabetes. 5. Hypertension. 6. History of dyslipidemia, history of osteoarthritis and multiple back surgeries. RECOMMENDATIONS: Cardiac enzymes have been negative so far and myocardial infarction was ruled out. Patient currently chest pain-free. Blood pressure control will be continued with the current regimen. Diabetes management as per Dr. Miranda and/or associate. s/p cardiolte - normal with no ischemia No furtehr cardaic work up at this time Subjective 24 Hr Interval Summary Free Text/Dictation The patient with no chest pain and no sob with no overt chf Exam/Review of Systems Vital Signs Vitals Vital Signs Date Time Temp Pulse Resp B/P Pulse Ox O2 Delivery O2 Flow Rate FiO2 08/08/17 20:19 98.3 70 16 148/60 97 08/06/17 21:47 Room Air Intake and Output 08/07/17 08/07/17 08/08/17 15:00 23:00 07:00 Intake Total 110 ml 1650 ml 300 ml Balance 110 ml 1650 ml 300 ml Results Result Diagram: 08/08/17 0821 08/08/17 0821 Results 24 hrs Laboratory Tests Test 08/08/17 08:21 08/08/17 08:33 08/08/17 12:35 08/08/17 12:47 White Blood Count 8.3 Red Blood Count 2.81 L Hemoglobin 8.2 L Hematocrit 25.0 L Mean Corpuscular Volume 89.0 Mean Corpuscular Hemoglobin 29.2 Mean Corpuscular Hemoglobin Concent 32.8 Red Cell Distribution Width 14.4 Platelet Count 317 Mean Platelet Volume 9.9 Neutrophils % 74.6 Lymphocytes % 15.1 Monocytes % 6.3 Eosinophils % 3.4 Basophils % 0.1 Nucleated Red Blood Cells % 0.0 Neutrophils # 6.2 Lymphocytes # 1.3 Monocytes # 0.5 Eosinophils # 0.3 Basophils # 0.0 Nucleated Red Blood Cells # 0.0 Erythrocyte Sedimentation Rate 105 H Sodium Level 134 L Potassium Level 4.4 Chloride Level 102 Carbon Dioxide Level 25 Anion Gap 11 Blood Urea Nitrogen 17 Creatinine 1.37 H Glucose Level 147 # Calcium Level 8.5 Total Bilirubin 0.2 Direct Bilirubin 0.00 Indirect Bilirubin 0.2 Aspartate Amino Transf (AST/SGOT) 19 Alanine Aminotransferase (ALT/SGPT) 31 Alkaline Phosphatase 105 Troponin I < 0.012 C-Reactive Protein 15.3 H Total Protein 6.5 Albumin 3.3 Globulin 3.20 Albumin/Globulin Ratio 1.03 Bedside Glucose 150 57 L 176 Test 08/08/17 13:28 08/08/17 17:33 08/08/17 19:56 Bedside Glucose 128 132 72 Medications Medications Current Medications Lorazepam (Ativan) 0.5 mg Q8H PRN PO ANXIETY; Start 08/06/17 at 22:00 Acetaminophen/ Hydrocodone Bitart ([place] (5/325)) 1 tab Q6H PRN PO PAIN LEVEL 4 -6 Last administered on 08/08/17 16:41; Admin Dose 1 TAB; Start 08/06/17 at 22: 00 Acetaminophen/ Hydrocodone Bitart ([place] (5/325)) 2 tab Q6H PRN PO PAIN LEVEL 7 -10; Start 08/06/17 at 22:00 Docusate Sodium (Colace) 100 mg Q12H PRN PO CONSTIPATION; Start 08/06/17 at 22: 00 Famotidine (Pepcid) 20 mg DAILY PO Last administered on 08/08/17 08:23; Admin Dose 20 MG; Start 08/07/17 at 09:00 Heparin Sodium (Porcine) (Heparin (5000 Units/0.5 ml)) 5,000 unit Q12 SC Last administered on 08/08/17 20:44; Admin Dose 5,000 UNIT; Start 08/06/17 at 22:00 Calcium Carbonate (Tums) 500 mg QID PO Last administered on 08/08/17 20:41; Admin Dose 500 MG; Start 08/06/17 at 22:00 Aspirin (Aspirin) 81 mg DAILY PO Last administered on 08/08/17 08:23; Admin Dose 81 MG; Start 08/08/17 at 09:00 Nitroglycerin (Nitroglycerin (Sl Tab) 0.4 Mg) 1 tab Q5M PRN SL CHEST PAIN; Start 08/06/17 at 22:00 Cholecalciferol (Vitamin D) 1,000 unit DAILY PO Last administered on 08/08/17 08:23; Admin Dose 1,000 UNIT; Start 08/07/17 at 09:00 Fluoxetine HCl (Prozac) 20 mg BID PO Last administered on 08/08/17 20:40; Admin Dose 20 MG; Start 08/07/17 at 09:00 Folic Acid (Folic Acid) 1 mg DAILY PO Last administered on 08/08/17 08:23; Admin Dose 1 MG; Start 08/07/17 at 09:00 Hydralazine HCl (Apresoline) 50 mg BID PO Last administered on 08/08/17 20:40 ; Admin Dose 50 MG; Start 08/07/17 at 09:00 Latanoprost (Xalatan) 1 drop HS BOTH EYES Last administered on 08/08/17 20:41 ; Admin Dose 1 DROP; Start 08/07/17 at 21:00 Lisinopril (Zestril) 40 mg BID PO Last administered on 08/08/17 20:41; Admin Dose 40 MG; Start 08/07/17 at 09:00 Metformin HCl (Glucophage Xr) 500 mg BID PO ; Start 08/07/17 at 09:00; Status UNV Metoprolol Succinate (Toprol Xl) 50 mg BID PO Last administered on 08/08/17 20 :40; Admin Dose 50 MG; Start 08/07/17 at 09:00 Solifenacin (Vesicare) 5 mg DAILY PO Last administered on 08/08/17 11:36; Admin Dose 5 MG; Start 08/07/17 at 09:00 Atorvastatin Calcium (Lipitor) 40 mg QHS PO Last administered on 08/08/17 20: 40; Admin Dose 40 MG; Start 08/07/17 at 21:00 Linagliptin (Tradjenta) 5 mg DAILY PO Last administered on 08/08/17 08:23; Admin Dose 5 MG; Start 08/07/17 at 09:00 Diagnostic Test (Pha) (Accu-Chek) 1 ea 02 XX Last administered on 08/07/17 02: 45; Admin Dose 1 EA; Start 08/07/17 at 02:00 Miscellaneous Information 1 ea NOTE XX ; Start 08/06/17 at 22:30 Glucose (Glutose) 15 gm Q15M PRN PO DECREASED GLUCOSE; Start 08/06/17 at 22:30 Glucose (Glutose) 22.5 gm Q15M PRN PO DECREASED GLUCOSE; Start 08/06/17 at 22: 30 Dextrose (D50w Syringe) 25 ml Q15M PRN IV DECREASED GLUCOSE Last administered on 08/08/17 12:42; Admin Dose 25 ML; Start 08/06/17 at 22:30 Dextrose (D50w Syringe) 50 ml Q15M PRN IV DECREASED GLUCOSE; Start 08/06/17 at 22:30 Glucagon (Glucagen) 1 mg Q15M PRN IM DECREASED GLUCOSE; Start 08/06/17 at 22:30 Glucose 15 gm 15 gm Q15M PRN BUCCAL DECREASED GLUCOSE; Start 08/06/17 at 22:30 Ferric Sodium Gluconate Complex/ Sodium Chloride (Ferrlecit/NS) 110 ml @ 100 mls/hr Q24H IVPB Last administered on 08/08/17 15:47; Admin Dose 100 MLS/HR; Start 08/07/17 at 12:00; Stop 08/09/17 at 13:05 Insulin Glargine (Lantus) 32 unit DAILY@08 SC Last administered on 08/08/17 08 :41; Admin Dose 32 UNIT; Start 08/08/17 at 08:00 Neomycin/ Polymyxin/ Hydrocortisone 4 drop 4 drop QID BOTH EARS Last administered on 08/08/17 20:41; Admin Dose 4 DROP; Start 08/07/17 at 13:00; Stop 08/12/17 at 12:59 Vancomycin HCl (Vancocin) 250 ml @ 125 mls/hr Q24H IVPB Last administered on 08/08/17 16:43; Admin Dose 125 MLS/HR; Start 08/08/17 at 16:00 ANDRIA MOULTON MD Aug 08, 2017 22:12
[2017-08-09] VITALS (12 sets, daily range): BP systolic 108–177; BP diastolic 60–76; PULSE 65–75; RESP 18
[2017-08-09] MEDS: ACCU-CHEK XX SCH (01:02)
[2017-08-09] MEDS: HYDROCODONE/APAP (5/325) TAB PO PRN ×2 (01:03→09:02)
[2017-08-09] MEDS: INSULIN ASPART [NOVOLOG] 3 ML PEN SC SCH ×7 (08:00→21:00)
[2017-08-09] MEDS: SOLIFENACIN 5 MG TAB PO SCH (09:02)
[2017-08-09] MEDS: FOLIC ACID 1 MG TAB PO SCH (09:03)
[2017-08-09] MEDS: ASPIRIN 81 MG TAB PO SCH (09:03)
[2017-08-09] MEDS: METOPROLOL (XL) 50 MG TAB PO SCH ×2 (09:03→21:21)
[2017-08-09] MEDS: FAMOTIDINE 20 MG TAB PO SCH (09:03)
[2017-08-09] MEDS: LINAGLIPTIN 5 MG TABLET PO SCH (09:03)
[2017-08-09] MEDS: CHOLECALCIFEROL 1,000 UNIT TAB PO SCH (09:05)
[2017-08-09] MEDS: FLUOXETINE 20 MG CAP PO SCH ×2 (09:05→21:20)
[2017-08-09] MEDS: LISINOPRIL 20 MG TAB PO SCH ×2 (09:06→21:21)
[2017-08-09] MEDS: CALCIUM CARBONATE 500 MG CHEW TAB PO SCH ×4 (09:06→21:14)
[2017-08-09] MEDS: INSULIN GLARGINE [LANtus] 3 ML PEN SC SCH (09:08)
[2017-08-09] MEDS: HEPARIN 5,000 UNIT/0.5 ML VIAL SC SCH ×2 (09:09→21:22)
[2017-08-09] MEDS: NEOMYC/POLYMYX/HC 10 ML OTIC SUSP BOTH EARS SCH ×4 (09:10→21:14)
[2017-08-09] MEDS: SOD FERRIC GLUC COMPLX 125 MG in SOD CHLORIDE 0.9% 100 ML IVPB SCH (12:06)
[2017-08-09] MEDS: VANCOMYCIN 1 GM in NS 250 ML IVPB SCH (15:52)
--- NOTE | 2017-08-09 17:26 | PN ---
Date/Time of Note Date/Time of Note DATE: 08/09/17 TIME: 17:24 Assessment/Plan VTE Prophylaxis VTE Prophylaxis Intervention: SCD's Lines/Catheters IV Catheter Type (from Nrsg): Saline Lock Urinary Cath still in place: No Assessment/Plan Assessment/Plan 1. Chest pain, rule out acute coronary syndrome. 2. Severe anemia. 3. Iron deficiency. 4. Diabetes. 5. Hypertension. 6. History of dyslipidemia, history of osteoarthritis and multiple back surgeries - s/p cardiolte - normal with no ischemia -no further cardiac work up necessary -no arrythmias -d/c planing Subjective 24 Hr Interval Summary Free Text/Dictation The aptient with no cahgne Exam/Review of Systems Vital Signs Vitals Vital Signs Date Time Temp Pulse Resp B/P Pulse Ox O2 Delivery O2 Flow Rate FiO2 08/09/17 16:37 98.1 69 18 158/70 96 08/06/17 21:47 Room Air Intake and Output 08/08/17 08/08/17 08/09/17 15:00 23:00 07:00 Intake Total 1560 ml 300 ml Balance 1560 ml 300 ml Results Result Diagram: 08/08/17 0821 08/08/17 0821 Results 24 hrs Laboratory Tests Test 08/08/17 17:33 08/08/17 19:56 08/09/17 08:03 08/09/17 12:05 Bedside Glucose 132 72 96 220 Test 08/09/17 14:35 08/09/17 14:48 Bedside Glucose 67 L 84 Medications Medications Current Medications Lorazepam (Ativan) 0.5 mg Q8H PRN PO ANXIETY; Start 08/06/17 at 22:00 Acetaminophen/ Hydrocodone Bitart ([place] (5/325)) 1 tab Q6H PRN PO PAIN LEVEL 4 -6 Last administered on 08/09/17 09:02; Admin Dose 1 TAB; Start 08/06/17 at 22 :00 Acetaminophen/ Hydrocodone Bitart ([place] (5/325)) 2 tab Q6H PRN PO PAIN LEVEL 7 -10; Start 08/06/17 at 22:00 Docusate Sodium (Colace) 100 mg Q12H PRN PO CONSTIPATION; Start 08/06/17 at 22: 00 Famotidine (Pepcid) 20 mg DAILY PO Last administered on 08/09/17 09:03; Admin Dose 20 MG; Start 08/07/17 at 09:00 Heparin Sodium (Porcine) (Heparin (5000 Units/0.5 ml)) 5,000 unit Q12 SC Last administered on 08/09/17 09:09; Admin Dose 5,000 UNIT; Start 08/06/17 at 22:00 Calcium Carbonate (Tums) 500 mg QID PO Last administered on 08/09/17 12:23; Admin Dose 500 MG; Start 08/06/17 at 22:00 Aspirin (Aspirin) 81 mg DAILY PO Last administered on 08/09/17 09:03; Admin Dose 81 MG; Start 08/08/17 at 09:00 Nitroglycerin (Nitroglycerin (Sl Tab) 0.4 Mg) 1 tab Q5M PRN SL CHEST PAIN; Start 08/06/17 at 22:00 Cholecalciferol (Vitamin D) 1,000 unit DAILY PO Last administered on 09:05; Admin Dose 1,000 UNIT; Start 08/07/17 at 09:00 Fluoxetine HCl (Prozac) 20 mg BID PO Last administered on 08/09/17 09:05; Admin Dose 20 MG; Start 08/07/17 at 09:00 Folic Acid (Folic Acid) 1 mg DAILY PO Last administered on 08/09/17 09:03; Admin Dose 1 MG; Start 08/07/17 at 09:00 Hydralazine HCl (Apresoline) 50 mg BID PO Last administered on 08/09/17 09:06 ; Admin Dose 50 MG; Start 08/07/17 at 09:00 Latanoprost (Xalatan) 1 drop HS BOTH EYES Last administered on 08/08/17 20:41 ; Admin Dose 1 DROP; Start 08/07/17 at 21:00 Lisinopril (Zestril) 40 mg BID PO Last administered on 08/09/17 09:06; Admin Dose 40 MG; Start 08/07/17 at 09:00 Metformin HCl (Glucophage Xr) 500 mg BID PO ; Start 08/07/17 at 09:00; Status UNV Metoprolol Succinate (Toprol Xl) 50 mg BID PO Last administered on 08/09/17 09:03; Admin Dose 50 MG; Start 08/07/17 at 09:00 Solifenacin (Vesicare) 5 mg DAILY PO Last administered on 08/09/17 09:02; Admin Dose 5 MG; Start 08/07/17 at 09:00 Atorvastatin Calcium (Lipitor) 40 mg QHS PO Last administered on 08/08/17 20: 40; Admin Dose 40 MG; Start 08/07/17 at 21:00 Linagliptin (Tradjenta) 5 mg DAILY PO Last administered on 08/09/17 09:03; Admin Dose 5 MG; Start 08/07/17 at 09:00 Diagnostic Test (Pha) (Accu-Chek) 1 ea 02 XX Last administered on 08/07/17 02: 45; Admin Dose 1 EA; Start 08/07/17 at 02:00 Miscellaneous Information 1 ea NOTE XX ; Start 08/06/17 at 22:30 Glucose (Glutose) 15 gm Q15M PRN PO DECREASED GLUCOSE; Start 08/06/17 at 22:30 Glucose (Glutose) 22.5 gm Q15M PRN PO DECREASED GLUCOSE; Start 08/06/17 at 22: 30 Dextrose (D50w Syringe) 25 ml Q15M PRN IV DECREASED GLUCOSE Last administered on 08/08/17 12:42; Admin Dose 25 ML; Start 08/06/17 at 22:30 Dextrose (D50w Syringe) 50 ml Q15M PRN IV DECREASED GLUCOSE; Start 08/06/17 at 22:30 Glucagon (Glucagen) 1 mg Q15M PRN IM DECREASED GLUCOSE; Start 08/06/17 at 22:30 Glucose (Glutose) 15 gm Q15M PRN BUCCAL DECREASED GLUCOSE; Start 08/06/17 at 22 :30 Insulin Glargine (Lantus) 32 unit DAILY@08 SC Last administered on 08/09/17 09:08; Admin Dose 32 UNIT; Start 08/08/17 at 08:00 Neomycin/ Polymyxin/ Hydrocortisone 4 drop 4 drop QID BOTH EARS Last administered on 08/09/17 12:09; Admin Dose 4 DROP; Start 08/07/17 at 13:00; Stop 08/12/17 at 12:59 Vancomycin HCl (Vancocin) 250 ml @ 125 mls/hr Q24H IVPB Last administered on 08/09/17 15:52; Admin Dose 125 MLS/HR; Start 08/08/17 at 16:00 Miscellaneous Information (*Rx Drug Level Order Reminder*) VANCO TROUGH @ 1, 500 ON ... ONCE ONCE XX ; Start 08/10/17 at 15:00; Stop 08/10/17 at 15:01 ANDRIA MOULTON MD Aug 09, 2017 17:26
--- NOTE | 2017-08-09 18:26 | PN ---
Date/Time of Note Date/Time of Note DATE: 08/09/17 TIME: 18:25 Assessment/Plan VTE Prophylaxis VTE Prophylaxis Intervention: anti-embolic stocking Lines/Catheters IV Catheter Type (from Nrs): [facility] Urinary Cath still in place: No Assessment/Plan Problems: (1) History of lumbar laminectomy Status: Chronic Comment: She was raised about whether or not there is infection here. We are still waiting on CT scan and MRI scan. Hopefully those will delineate what we need to do otherwise we will have to do nuclear medicine investigation. Fortunately blood cultures are negative. (2) Sciatica Status: Chronic Comment: Noted. Left physical therapy get the patient moving Qualifiers: Laterality: right Qualified Code: M54.31 - Sciatica of right side (3) Anemia Status: Acute Comment: On replacement therapy Qualifiers: Anemia type: unspecified type Qualified Code: D64.9 - Anemia, unspecified type Subjective 24 Hr Interval Summary Free Text/Dictation Patient reports she has not yet been up and around. Will have physical therapy see her Constitutional: no complaints Cardiovascular: no complaints Gastrointestinal: no complaints Genitourinary: no complaints Exam/Review of Systems Vital Signs Vitals Vital Signs Date Time Temp Pulse Resp B/P Pulse Ox O2 Delivery O2 Flow Rate FiO2 08/09/17 16:37 98.1 69 18 158/70 96 08/06/17 21:47 Room Air Intake and Output 08/08/17 08/08/17 08/09/17 15:00 23:00 07:00 Intake Total 1560 ml 300 ml Balance 1560 ml 300 ml Exam Constitutional: alert, oriented Respiratory: clear to auscultation, normal air movement Cardiovascular: nl pulses, regular rate and rhythm Results Result Diagram: 08/08/1782008/08/17 08 Results 24 hrs Laboratory Tests Test 08/08/17 19:56 08/09/17 08:03 08/09/17 12:05 08/09/17 14:35 Bedside Glucose 72 96 220 67 L Test 08/09/17 14:48 08/09/17 17:21 Bedside Glucose 84 115 Medications Medications Current Medications Lorazepam (Ativan) 0.5 mg Q8H PRN PO ANXIETY; Start 08/06/17 at 22:00 Acetaminophen/ Hydrocodone Bitart ([place] (5/325)) 1 tab Q6H PRN PO PAIN LEVEL 4 -6 Last administered on 08/09/17 09:02; Admin Dose 1 TAB; Start 08/06/17 at 22 :00 Acetaminophen/ Hydrocodone Bitart ([place] (5/325)) 2 tab Q6H PRN PO PAIN LEVEL 7 -10; Start 08/06/17 at 22:00 Docusate Sodium (Colace) 100 mg Q12H PRN PO CONSTIPATION; Start 08/06/17 at 22: 00 Famotidine (Pepcid) 20 mg DAILY PO Last administered on 08/09/17 09:03; Admin Dose 20 MG; Start 08/07/17 at 09:00 Heparin Sodium (Porcine) (Heparin (5000 Units/0.5 ml)) 5,000 unit Q12 SC Last administered on 08/09/17 09:09; Admin Dose 5,000 UNIT; Start 08/06/17 at 22:00 Calcium Carbonate (Tums) 500 mg QID PO Last administered on 08/09/17 17:56; Admin Dose 500 MG; Start 08/06/17 at 22:00 Aspirin (Aspirin) 81 mg DAILY PO Last administered on 08/09/17 09:03; Admin Dose 81 MG; Start 08/08/17 at 09:00 Nitroglycerin (Nitroglycerin (Sl Tab) 0.4 Mg) 1 tab Q5M PRN SL CHEST PAIN; Start 08/06/17 at 22:00 Cholecalciferol (Vitamin D) 1,000 unit DAILY PO Last administered on 09:05; Admin Dose 1,000 UNIT; Start 08/07/17 at 09:00 Fluoxetine HCl (Prozac) 20 mg BID PO Last administered on 08/09/17 09:05; Admin Dose 20 MG; Start 08/07/17 at 09:00 Folic Acid (Folic Acid) 1 mg DAILY PO Last administered on 08/09/17 09:03; Admin Dose 1 MG; Start 08/07/17 at 09:00 Hydralazine HCl (Apresoline) 50 mg BID PO Last administered on 08/09/17 09:06 ; Admin Dose 50 MG; Start 08/07/17 at 09:00 Latanoprost (Xalatan) 1 drop HS BOTH EYES Last administered on 08/08/17 20:41 ; Admin Dose 1 DROP; Start 08/07/17 at 21:00 Lisinopril (Zestril) 40 mg BID PO Last administered on 08/09/17 09:06; Admin Dose 40 MG; Start 08/07/17 at 09:00 Metformin HCl (Glucophage Xr) 500 mg BID PO ; Start 08/07/17 at 09:00; Status UNV Metoprolol Succinate (Toprol Xl) 50 mg BID PO Last administered on 08/09/17 09:03; Admin Dose 50 MG; Start 08/07/17 at 09:00 Solifenacin (Vesicare) 5 mg DAILY PO Last administered on 08/09/17 09:02; Admin Dose 5 MG; Start 08/07/17 at 09:00 Atorvastatin Calcium (Lipitor) 40 mg QHS PO Last administered on 08/08/17 20: 40; Admin Dose 40 MG; Start 08/07/17 at 21:00 Linagliptin (Tradjenta) 5 mg DAILY PO Last administered on 08/09/17 09:03; Admin Dose 5 MG; Start 08/07/17 at 09:00 Diagnostic Test (Pha) (Accu-Chek) 1 ea 02 XX Last administered on 08/07/17 02: 45; Admin Dose 1 EA; Start 08/07/17 at 02:00 Miscellaneous Information 1 ea NOTE XX ; Start 08/06/17 at 22:30 Glucose (Glutose) 15 gm Q15M PRN PO DECREASED GLUCOSE; Start 08/06/17 at 22:30 Glucose (Glutose) 22.5 gm Q15M PRN PO DECREASED GLUCOSE; Start 08/06/17 at 22: 30 Dextrose (D50w Syringe) 25 ml Q15M PRN IV DECREASED GLUCOSE Last administered on 08/08/17 12:42; Admin Dose 25 ML; Start 08/06/17 at 22:30 Dextrose (D50w Syringe) 50 ml Q15M PRN IV DECREASED GLUCOSE; Start 08/06/17 at 22:30 Glucagon (Glucagen) 1 mg Q15M PRN IM DECREASED GLUCOSE; Start 08/06/17 at 22:30 Glucose (Glutose) 15 gm Q15M PRN BUCCAL DECREASED GLUCOSE; Start 08/06/17 at 22 :30 Insulin Glargine (Lantus) 32 unit DAILY@08 SC Last administered on 08/09/17 09:08; Admin Dose 32 UNIT; Start 08/08/17 at 08:00 Neomycin/ Polymyxin/ Hydrocortisone 4 drop 4 drop QID BOTH EARS Last administered on 08/09/17 17:56; Admin Dose 4 DROP; Start 08/07/17 at 13:00; Stop 08/12/17 at 12:59 Vancomycin HCl (Vancocin) 250 ml @ 125 mls/hr Q24H IVPB Last administered on 08/09/17 15:52; Admin Dose 125 MLS/HR; Start 08/08/17 at 16:00 Miscellaneous Information (*Rx Drug Level Order Reminder*) VANCO TROUGH @ 1, 500 ON ... ONCE ONCE XX ; Start 08/10/17 at 15:00; Stop 08/10/17 at 15:01 EUGENE MUJICA MD Aug 09, 2017 18:26
[2017-08-09] MEDS: LATANOPROST 0.005% 2.5 ML OPH BOTH EYES SCH (21:14)
[2017-08-09] MEDS: ATORVASTATIN 40 MG TAB PO SCH (21:20)
[2017-08-09] MEDS ORDERED: CEPHALEXIN 500 MG CAP PO SCH (22:00)
[2017-08-10] VITALS (12 sets, daily range): BP systolic 135–184; BP diastolic 57–75; PULSE 68–73; RESP 18–20
[2017-08-10] MEDS: ACCU-CHEK XX SCH (01:24)
[2017-08-10] MEDS: INSULIN ASPART [NOVOLOG] 3 ML PEN SC SCH ×6 (07:45→18:03)
[2017-08-10 08:39] LABS: CREATININE 1.42 mg/dl (0.44-1.00)
[2017-08-10] MEDS: CALCIUM CARBONATE 500 MG CHEW TAB PO SCH ×3 (08:43→16:42)
[2017-08-10] MEDS: LISINOPRIL 20 MG TAB PO SCH (08:43)
[2017-08-10] MEDS: METOPROLOL (XL) 50 MG TAB PO SCH (08:43)
[2017-08-10] MEDS: ASPIRIN 81 MG TAB PO SCH (08:43)
[2017-08-10] MEDS: HEPARIN 5,000 UNIT/0.5 ML VIAL SC SCH (08:44)
[2017-08-10] MEDS: FOLIC ACID 1 MG TAB PO SCH (08:47)
[2017-08-10] MEDS: LINAGLIPTIN 5 MG TABLET PO SCH (08:48)
[2017-08-10] MEDS: CHOLECALCIFEROL 1,000 UNIT TAB PO SCH (08:48)
[2017-08-10] MEDS: FLUOXETINE 20 MG CAP PO SCH (08:48)
[2017-08-10] MEDS: NEOMYC/POLYMYX/HC 10 ML OTIC SUSP BOTH EARS SCH ×3 (08:48→16:42)
[2017-08-10] MEDS: FAMOTIDINE 20 MG TAB PO SCH (08:49)
--- NOTE | 2017-08-10 08:49 | PN ---
Date/Time of Note Date/Time of Note DATE: 08/10/17 TIME: 08:48 Assessment/Plan VTE Prophylaxis VTE Prophylaxis Intervention: SCD's Lines/Catheters IV Catheter Type (from Nrs): Saline Lock Urinary Cath still in place: No Assessment/Plan Assessment/Plan 1. Chest pain, rule out acute coronary syndrome. 2. Severe anemia. 3. Iron deficiency. 4. Diabetes. 5. Hypertension. 6. History of dyslipidemia, history of osteoarthritis and multiple back surgeries - s/p cardiolte - normal with no ischemia -no further cardiac work up necessary -no arrythmias -investigation in progress for possible infection Subjective 24 Hr Interval Summary Free Text/Dictation the patient with no change Exam/Review of Systems Vital Signs Vitals Vital Signs Date Time Temp Pulse Resp B/P Pulse Ox O2 Delivery O2 Flow Rate FiO2 08/10/17 08:23 72 08/10/17 08:01 100.0 20 184/75 96 08/06/17 21:47 Room Air Intake and Output 08/09/17 08/09/17 08/10/17 15:00 23:00 07:00 Intake Total 110 ml 1000 ml 400 ml Balance 110 ml 1000 ml 400 ml Results Result Diagram: 08/08/17 0821 08/10/17 0746 Results 24 hrs Laboratory Tests Test 08/09/17 12:05 08/09/17 14:35 08/09/17 14:48 08/09/17 17:21 Bedside Glucose 220 67 L 84 115 Test 08/09/17 20:47 08/10/17 07:45 08/10/17 07:46 Bedside Glucose 89 78 Blood Urea Nitrogen 15 Creatinine 1.42 H Medications Medications Current Medications Lorazepam (Ativan) 0.5 mg Q8H PRN PO ANXIETY; Start 08/06/17 at 22:00 Acetaminophen/ Hydrocodone Bitart ([place] (5/325)) 1 tab Q6H PRN PO PAIN LEVEL 4 -6 Last administered on 08/09/17t 09:02; Admin Dose 1 TAB; Start 08/06/17 at 22 :00 Acetaminophen/ Hydrocodone Bitart ([place] (5/325)) 2 tab Q6H PRN PO PAIN LEVEL 7 -10; Start 08/06/17 at 22:00 Docusate Sodium (Colace) 100 mg Q12H PRN PO CONSTIPATION; Start 08/06/17 at 22: 00 Famotidine (Pepcid) 20 mg DAILY PO Last administered on 08/09/17 09:03; Admin Dose 20 MG; Start 08/07/17 at 09:00 Heparin Sodium (Porcine) (Heparin (5000 Units/0.5 ml)) 5,000 unit Q12 SC Last administered on 08/09/17 21:22; Admin Dose 5,000 UNIT; Start 08/06/17 at 22:00 Calcium Carbonate (Tums) 500 mg QID PO Last administered on 08/09/17 21:14; Admin Dose 500 MG; Start 08/06/17 at 22:00 Aspirin (Aspirin) 81 mg DAILY PO Last administered on 08/09/17 09:03; Admin Dose 81 MG; Start 08/08/17 at 09:00 Nitroglycerin (Nitroglycerin (Sl Tab) 0.4 Mg) 1 tab Q5M PRN SL CHEST PAIN; Start 08/06/17 at 22:00 Cholecalciferol (Vitamin D) 1,000 unit DAILY PO Last administered on 09:05; Admin Dose 1,000 UNIT; Start 08/07/17 at 09:00 Fluoxetine HCl (Prozac) 20 mg BID PO Last administered on 08/09/17 21:20; Admin Dose 20 MG; Start 08/07/17 at 09:00 Folic Acid (Folic Acid) 1 mg DAILY PO Last administered on 08/09/17 09:03; Admin Dose 1 MG; Start 08/07/17 at 09:00 Hydralazine HCl (Apresoline) 50 mg BID PO Last administered on 08/09/17 21:21 ; Admin Dose 50 MG; Start 08/07/17 at 09:00 Latanoprost (Xalatan) 1 drop HS BOTH EYES Last administered on 08/09/17 21:14 ; Admin Dose 1 DROP; Start 08/07/17 at 21:00 Lisinopril (Zestril) 40 mg BID PO Last administered on 08/09/17 21:21; Admin Dose 40 MG; Start 08/07/17 at 09:00 Metoprolol Succinate (Toprol Xl) 50 mg BID PO Last administered on 08/09/17 21:21; Admin Dose 50 MG; Start 08/07/17 at 09:00 Solifenacin (Vesicare) 5 mg DAILY PO Last administered on 08/09/17 09:02; Admin Dose 5 MG; Start 08/07/17 at 09:00 Atorvastatin Calcium (Lipitor) 40 mg QHS PO Last administered on 08/09/17 21: 20; Admin Dose 40 MG; Start 08/07/17 at 21:00 Linagliptin (Tradjenta) 5 mg DAILY PO Last administered on 08/09/17 09:03; Admin Dose 5 MG; Start 08/07/17 at 09:00 Diagnostic Test (Pha) (Accu-Chek) 1 ea 02 XX Last administered on 08/07/17 02: 45; Admin Dose 1 EA; Start 08/07/17 at 02:00 Miscellaneous Information 1 ea NOTE XX ; Start 08/06/17 at 22:30 Glucose (Glutose) 15 gm Q15M PRN PO DECREASED GLUCOSE; Start 08/06/17 at 22:30 Glucose (Glutose) 22.5 gm Q15M PRN PO DECREASED GLUCOSE; Start 08/06/17 at 22: 30 Dextrose (D50w Syringe) 25 ml Q15M PRN IV DECREASED GLUCOSE Last administered on 08/08/17 12:42; Admin Dose 25 ML; Start 08/06/17 at 22:30 Dextrose (D50w Syringe) 50 ml Q15M PRN IV DECREASED GLUCOSE; Start 08/06/17 at 22:30 Glucagon (Glucagen) 1 mg Q15M PRN IM DECREASED GLUCOSE; Start 08/06/17 at 22:30 Glucose (Glutose) 15 gm Q15M PRN BUCCAL DECREASED GLUCOSE; Start 08/06/17 at 22 :30 Insulin Glargine (Lantus) 32 unit DAILY@08 SC Last administered on 08/09/17 09:08; Admin Dose 32 UNIT; Start 08/08/17 at 08:00 Neomycin/ Polymyxin/ Hydrocortisone 4 drop 4 drop QID BOTH EARS Last administered on 08/09/17 21:14; Admin Dose 4 DROP; Start 08/07/17 at 13:00; Stop 08/12/17 at 12:59 Vancomycin HCl (Vancocin) 250 ml @ 125 mls/hr Q24H IVPB Last administered on 08/09/17 15:52; Admin Dose 125 MLS/HR; Start 08/08/17 at 16:00 Miscellaneous Information (*Rx Drug Level Order Reminder*) VANCO TROUGH @ 1, 500 ON ... ONCE ONCE XX ; Start 08/10/17 at 15:00; Stop 08/10/17 at 15:01 ANDRIA MOULTON MD Aug 10, 2017 08:49
[2017-08-10] MEDS: INSULIN GLARGINE [LANtus] 3 ML PEN SC SCH (08:52)
--- NOTE | 2017-08-10 08:52 | PQ ---
Date/Time of Note Date/Time of Note DATE: 08/10/17 TIME: 08:44 Physician Query Documentation Clarification Dear Dr. Miranda, Documentation in the medical record indicates this patient has been admitted with or diagnosed as having Chest Pain. >Chest pain Status: Acute Comment: ruled out for mi, non cardiac -----progress note 08/08 >Cardiology--->1. Chest pain, rule out acute coronary syndrome.- s/p cardiolte - normal with no ischemia -no further cardiac work up necessary Please clarify a suspected etiology of chest pain. To facilitate accurate and complete coding, please ivy ( x ) the suspected diagnosis that apply: ( ) Chest pain due to costochondritis ( X ) Chest pain due to musculoskeletal ( ) Chest pain due to unclear etiology ( ) Others Please provide your response by clicking edit document, making your choice ( x ), click ok/save and finally click sign. You may also document your response on your progress notes. Thank you for your time. With appreciation, Charly Blanton RN, BSN, CCS, CCDS Clinical Registered Occupational Therapist Health Information Management, [employer] and Coding Services [phone] Room # 1525 - [address]~ [id number] CHARLY BLANTON Aug 10, 2017 08:52 EUGENE MIRANDA MD Aug 10, 2017 22:00
[2017-08-10] MEDS: SOLIFENACIN 5 MG TAB PO SCH (08:56)
--- NOTE | 2017-08-10 09:20 | RADRPT ---
PROCEDURE: CT lumbar spine without contrast. CLINICAL INDICATION: Back pain, concern for infection TECHNIQUE: CT of the lumbar spine without contrast was performed on a multidetector CT scanner, wi th multiplanar reformats. One or more of the following dose reduction techniques were used: Automat ed exposure control, adjustment in mA and / or kV according to patient size, use of iterative recons tructive technique. CTDIvol = 26 mGy and DLP = 675 mGy-cm. COMPARISON: 10/01/2015 FINDINGS: There is generalized osteopenia. Postoperative changes are demonstrated with interbody spacers at L2 -3, L4-5, L5-S1, bilateral pedicle screws at L2 and L4 with posterior fusion rods. Hardware is intac t without surrounding lucency. There is a solid interbody fusion are seen at L2-3, L4-5, L5-S1, rocio lar appearance, along with areas of solid osseous interbody fusion at the posterior aspect of the L3 -4 disc space now seen. There is solid posterior osseous fusion also identified at L2-3 on the right , L3-4, L4-5 and L5-S1, similar in appearance, with findings now also seen at L2-3 on the left. Old pedicle screw tracts are seen at S1. No fracture is seen. There is preservation of the lordosis of the lumbar spine. There is mild retro listhesis at L1-2, progressed. Mild retrolisthesis at L2-3 and mild grade 1 anterolisthesis at L3-4 and L4-5 are also seen, similar in appearance. There are multilevel anterior osteophytes. There is mild disc space narrowing at T12-L1, similar in appearance, and mild - moderate disc space narrowin g at L1-2 with vacuum changes, and endplate degenerative changes at L1-2 with sclerosis and cystic c hanges - Schmorl nodes which have progressed. No destructive osseous changes or paraspinal inflamma tory changes or fluid collections are seen. T12-L1: There is posterior disc bulging. No central canal stenosis or foraminal narrowing is identi fied. No significant change. L1-L2: There is uncovering of the posterior disc bulging and annular calcification. There is mild fa cet arthropathy. No significant central canal stenosis is seen. Severe right, moderate - severe lef t foraminal narrowing, progressed. L2-L3: Postoperative changes are present as described above with associated artifacts from the hardw are. Also redemonstrated is a right L2 laminectomy/partial facetectomy defects. No osseous central canal stenosis seen. Mild bilateral foraminal narrowing is seen. No significant change. L3-L4: Postoperative changes are present as described above with associated artifacts from the hardw are. There also laminectomy defects. There are posterior osteophytes and facet arthropathy. No osse ous central canal stenosis is seen. There is mild right, moderate left foraminal narrowing. No signi ficant change. L4-L5: Postoperative changes present as described above. There also laminectomy defects. There are p osterior osteophytes and facet arthropathy. There is no central canal stenosis. Mild right foramina l narrowing. No significant change. L5-S1: Postoperative changes as described above. There are also L5 laminectomy and partial left face tectomy defects. There are posterior osteophytes and facet arthropathy. There is no central canal st enosis. There is mild bilateral foraminal narrowing. No significant change. IMPRESSION: 1. No findings to suggest lumbar spinal infection seen. If there is persistent clinical concern, f ollow-up is advised. 2. Status post interbody fusion at L2-3, L4-5, L5-S1 with posterior fusion hardware at L2-L4, evide nce of prior fusion hardware down to S1, and posterior decompression at L2-3 through L5-S1 as descri bed. Interval area of solid osseous interbody fusion at L3-4 with solid posterior osseous fusion at L2-3 on the left. Stable solid interbody fusion at L2-3, L4-5 and L5-S1, and solid posterior osseous fusion at L2-3 on the right, and at L3-4 through L5-S1 seen. 3. Lumbar spondylosis/degenerative enthesopathy, progressed at L1-2 with mild retrolisthesis progre ssed at this level. Severe right, moderate - severe left foraminal narrowing at this level, progress ed. 4. Otherwise no significant change seen. 5. Additional multilevel foraminal narrowing detailed above. 6. Osteopenia. RPTAT: VV .Elfego Davis MD, Date Time Electronically viewed and signed by .Elfego Davis MD, on 08/10/2017 09:19 .O/
[2017-08-10] MEDS: VANCOMYCIN 1 GM in NS 250 ML IVPB SCH (16:42)
--- NOTE | 2017-08-10 17:22 | DS ---
Date/Time of Note Date/Time of Note DATE: 08/10/17 TIME: 17:18 Discharge Summary Admission/Discharge Info Admit Date/Time Aug 08, 2017 at 16:16 Discharge Date/Time 2016 Discharge Diagnosis Failed low back syndrome; sciatica; ckd2; dm2; hypertension; iron deficiency anemia; hyperlipidemia Patient Condition: Fair Consults Cardiology Procedures Lumbar spine CT scan; nuclear medicine cardiac stress test Hx of Present Illness 76-year-old [place] woman with a chief complaint of some failure to thrive. She has had a somewhat complicated medical history over the last 3 years which had correlated her around issues. She had a semi-urgent lumbar laminectomy with apparent infection as a complication performed by Dr. Martin at [facility] in 2014. Postoperatively she has had significant issues of ambulation walking is been seen by her colleague Dr. Zenon Gayle, and ultimately by neurology Dr. Rigoberto Barragan. Over the last few days she had not been feeling well and described a sensation of cough some shortness of breath and chest pressure. Please note that she is somewhat vague about this history. Also complains about fever and polyuria and a concern that the infection her back has recurred.. Hospital Course 76-year-old female who is admitted with chest pain. There is a concern given her fever that she might actually have a recurrence of the spinal infection she had in 2014. Imaging studies of the back including high-resolution CT were fortunately unremarkable and unchanged. In addition her cardiac imaging studies were also unremarkable and she ruled out by enzyme. As such she is now stable for discharge and be discharged home. Please note she has significant personal limitations and disabilities due to a prior back surgery with right leg weakness. She was seen by physical therapy and consultation recommended outpatient physical therapy which she has had several times in the past. She has no known communicable diseases she does not hazard to herself or others rehabilitation potential is fair. Home Meds Reported Medications Solifenacin* (Vesicare*) 5 Mg Tablet, 5 MG PO DAILY, TAB 08/07/17 Cholecalciferol* (Vitamin D3*) 1,000 Unit Tablet, 1000 UNIT PO DAILY, TAB 01/09/15 Hydralazine Hcl* (Hydralazine Hcl*) 50 Mg Tablet, 50 MG PO BID, TAB 01/09/15 Metoprolol Succinate* (Toprol XL*) 50 Mg Tab.er.24h, 50 MG PO BID, TAB 01/09/15 Metformin Hcl* (Metformin Hcl* ER) 500 Mg Tab.sr.24h, 500 MG PO BID, TAB 01/09/15 Latanoprost (Xalatan) 2.5 Ml Drops, 1 DRP OP HS 08/27/13 Fluoxetine Hcl* (Fluoxetine Hcl*) 20 Mg Capsule, 20 MG PO BID, 0 Refills 01/29/11 Lisinopril* (Lisinopril*) 40 Mg Tablet, 40 MG PO BID 01/29/11 Folic Acid* (Folic Acid*) 1 Mg Tablet, 1 MG PO DAILY, 0 Refills 01/29/11 Sitagliptin* (Januvia*) 100 Mg Tablet, 100 MG PO DAILY, 0 Refills 01/29/11 Discontinued Reported Medications Insulin Glargine,Hum.rec.anlog (Lantus) 100 U/Ml Cartridge, 28 SQ DAILY 09/06/13 Solifenacin* (Vesicare*) 5 Mg Tablet, 5 MG PO DAILY 08/27/13 Pravastatin Sodium* (Pravastatin Sodium*) 40 Mg Tablet, 40 MG PO HS 08/27/13 Follow-up Plan Office of Dr. Miranda in 2 weeks. Primary Care Provider Eugene Miranda MD Time spent on discharge: > 30 minutes Pending Labs Laboratory Tests Test 08/09/17 17:21 08/09/17 20:47 08/10/17 07:45 08/10/17 07:46 Bedside Glucose 115mg/dL (70-220) 89mg/dL (70-220) 78mg/dL (70-220) Blood Urea Nitrogen 15mg/dl (7-20) Creatinine 1.42mg/dl (0.44-1.00) Test 08/10/17 11:52 08/10/17 14:52 Bedside Glucose 128mg/dL (70-220) Vancomycin Level Trough 15.5ug/ml (10.0-20.0) EUGENE MIRANDA MD Aug 10, 2017 17:22
--- NOTE | 2017-08-10 17:23 | PDOCDIS ---
Discharge Instructions DIAGNOSIS Discharge Diagnosis Failed low back syndrome; sciatica; ckd2; dm2; hypertension; iron deficiency anemia; hyperlipidemia CONDITION Patient Condition: Fair HOME CARE INSTRUCTIONS: Special Diet: diabetic ACTIVITY: Activity Restrictions: Slowly Increase Activity Avoid heavy lifting Do not operate Machinery Do not operate Power Tool FOLLOW UP/APPOINTMENTS Follow-up Plan Office of Dr. Miranad in 2 weeks. EUGENE MIRANDA MD Aug 10, 2017 17:23
[2017-08-10] MEDS ORDERED: ASPI81TA3 PO (17:25)
[2017-08-11] MEDS ORDERED: VANCOMYCIN 750 MG in SOD CHLORIDE 0.9% 150 ML IVPB SCH (16:00)
== END 2017-08-10 20:03 | disposition home or self-care (01) | DRG 552 ==
LOC: E/R 19:30 → MS4 20:43 → OBSVTOIN 08-08 16:16
PROVIDERS: ADMIT Internal Medicine; ATTEND Internal Medicine
DX: M54.41 Lumbago with sciatica, right side (principal); M33.10 Other dermatomyositis, organ involvement unspecified; E11.22 Type 2 diabetes mellitus with diabetic chronic kidney disease; E11.65 Type 2 diabetes mellitus with hyperglycemia; E11.39 Type 2 diabetes mellitus with other diabetic ophthalmic complication; D50.9 Iron deficiency anemia, unspecified; I12.9 Hypertensive chronic kidney disease with stage 1 through stage 4 chronic kidney disease, or unspecified chronic kidney disease; I45.10 Unspecified right bundle-branch block; R07.89 Other chest pain; D64.9 Anemia, unspecified; E78.5 Hyperlipidemia, unspecified; M19.90 Unspecified osteoarthritis, unspecified site; H40.9 Unspecified glaucoma; N18.2 Chronic kidney disease, stage 2 (mild); Z96.642 Presence of left artificial hip joint; Z96.651 Presence of right artificial knee joint; Z79.84 Long term (current) use of oral hypoglycemic drugs; Z79.4 Long term (current) use of insulin
CPT/HCPCS: 36415; 71010; 72100; 72131; 78452; 80048; 80053; 80202; 81001; 82550; 82553; 82565; 82728; 82962; 83036; 83540; 84484; 84520; 85025; 85651; 86140; 87040; 87086; 90686; 93005; 93017; 93306; 96374; 97161; 99217; A9500; A9505; G0378; J1644; J1815; J2405; J2785; J2916; J3370; J7050; J7120

== ENCOUNTER → 2018-04-18 | Outpatient (CLI) | END | disposition home or self-care (01) ==

== ENCOUNTER 2018-04-28 16:53 | Inpatient (IN) | END 2018-05-05 18:46 | disposition home or self-care (01) | DRG 291 ==

== ENCOUNTER 2018-07-11 12:46 | Inpatient (IN) | END 2018-07-20 17:45 | DRG 86 ==

== ENCOUNTER 2018-07-20 18:02 | Inpatient (IN) | END 2018-07-28 14:00 | disposition home or self-care (01) | DRG 949 ==

== ENCOUNTER 2018-08-02 14:17 | Inpatient (IN) | END 2018-09-23 18:24 | DRG 673 ==

== ENCOUNTER 2018-10-06 20:52 | Inpatient (IN) | END 2018-10-17 23:40 | disposition EXP | DRG 853 ==